=== PATIENT | female | born 1965 | race Caucasian/White ===

== ENCOUNTER 2017-04-03 11:45 | Day surgery (SDC) | payer OTHER ==
[2017-04-03] MEDS ORDERED: MIDAZOLAM 2 MG/2 ML VIAL IVP ONE (12:00)
[2017-04-03] MEDS ORDERED: ONDANSETRON 4 MG/2 ML VIAL IVP ONE (12:00)
[2017-04-03] MEDS ORDERED: fentaNYL 100 MCG/2 ML VIAL IVP ONE (12:00)
[2017-04-03] MEDS ORDERED: LACTATED RINGERS 1,000 ML IV ONE (12:01)
[2017-04-03 12:30] LABS: HCG UR QUAL NEGATIVE
[2017-04-03 13:17] VITALS: BP 117/62
== END 2017-04-03 11:46 | disposition home or self-care (01) ==
LOC: SDS 11:45
PROVIDERS: ATTEND Surgery
PROC: 0DJD8ZZ Inspection of Lower Intestinal Tract, Via Natural or Artificial Opening Endoscopic (ICD-10-PCS; principal; 2017-04-03 12:45)
DX: Z12.11 Encounter for screening for malignant neoplasm of colon (principal)
CPT/HCPCS: 45378; 81025; J7120

== ENCOUNTER 2018-02-28 09:26 | Outpatient (CLI) | payer BC, OTHER ==
[2018-02-28 11:11] VITALS: BP 138/69
--- NOTE | 2018-02-28 11:24 | Ultrasound Report ---
Procedure Date: 02/28/2018 Accession Number: [id number] / [id number] Procedure: US - Breast Punct Asp Cyst RT CPT Code: FULL RESULT: EXAM: Breast Punct Asp Cyst RT DATE: 02/28/2018 10:26 AM CLINICAL HISTORY: R BREAST CYST COMPARISON: None. TECHNIQUE/FINDINGS: Written informed consent was obtained. The patient was brought to the ultrasound procedure room and placed in the supine position. Following preliminary ultrasound which identified a 3.5 cm simple appearing right breast cyst, the area was sterilely prepped. A 20-gauge needle was used to obtain adequate local anesthesia with lidocaine and then advanced into the cyst under ultrasound guidance with aircraft sales representative images obtained for the record. A total of 7 cc of clear straw-colored fluid were aspirated and discarded. The cyst fully collapsed on ultrasound. The patient appeared to tolerate the procedure well. IMPRESSION: Right breast cyst aspiration. RADIA
[2018-02-28] MEDS ORDERED: BUFFERED LIDOCAINE 10 ML SYRINGE IU ONE (13:05)
== END 2018-02-28 09:27 | disposition home or self-care (01) ==
LOC: DI 09:26
PROVIDERS: ATTEND Surgery
DX: N60.01 Solitary cyst of right breast (principal)
CPT/HCPCS: 19000

== ENCOUNTER 2020-06-20 09:15 | Emergency (ER) | payer OTHER ==
[2020-06-20 10:36] LABS: BASOPHILS # (AUTO) 0.1 10^3/uL (0.0-0.1); BASOPHILS % (AUTO) 1.2 %; EOSINOPHILS # (AUTO) 0.5 10^3/uL (0.0-0.7); EOSINOPHILS % (AUTO) 6.9 %; HGB - HEMOGLOBIN 15.1 g/dL (12.0-16.0); LYMPHOCYTES # (AUTO) 1.8 10^3/uL (1.5-3.5); MEAN CORPUSCULAR HEMOGLOBIN 30.9 pg (27.0-31.0); MEAN CORPUSCULAR HGB CONC 33.5 g/dL (32.0-36.0); MEAN CORPUSCULAR VOLUME 92.4 fL (81.0-99.0); MEAN PLATELET VOLUME 10.6 fL (7.9-10.8); MONOCYTES # (AUTO) 0.5 10^3/uL (0.0-1.0); MONOCYTES % (AUTO) 7.4 %; NEUTROPHILS % (AUTO) 58.2 %; PLT - PLATELET COUNT 265 10^3/uL (130-450); RED BLOOD COUNT 4.88 10^6/uL (4.20-5.40); RED CELL DISTRIBUTION WIDTH 12.3 % (12.0-15.0); WHITE BLOOD COUNT 6.9 x10^3/uL (4.8-10.8)
[2020-06-20 10:48] LABS: ALBUMIN 4.4 g/dL (3.2-5.5); ALBUMIN/GLOBULIN RATIO 1.4 (1.0-2.2); ALKALINE PHOSPHATASE 86 IU/L (42-121); ALT ALANINE AMINOTRANSFERASE < 10 IU/L (10-60); AST ASPARTATE AMINOTRANSFERASE 14 IU/L (10-42); BILIRUBIN,TOTAL 0.5 mg/dL (0.2-1.0); BUN - BLOOD UREA NITROGEN 19 mg/dL (6-20); CALCIUM 9.6 mg/dL (8.5-10.3); CARBON DIOXIDE - CO2 28 mmol/L (21-32); CHLORIDE 104 mmol/L (101-111); CREATININE 0.6 mg/dL (0.4-1.0); GLUCOSE 87 mg/dL (70-100); LIPASE 34 U/L (22-51); SODIUM 142 mmol/L (135-145); TOTAL PROTEIN 7.6 g/dL (6.7-8.2)
[2020-06-20 11:00] LABS: HCG UR QUAL NEGATIVE
[2020-06-20 12:48] VITALS: BP 129/92
--- NOTE | 2020-06-20 16:11 | ED Physician Documentation ---
History of Present Illness - Stated complaint Stated Complaint: NAUSEA/IRRITABILITY - Chief complaint Chief Complaint: General - History obtained from History obtained from: Patient - Additonal information Additional information: 55-year-old woman with medical history vulvar cyst, anxiety, iron deficiency anemia presents with irritability, body aches, and nausea since Sunday. Patient requesting AWAKE OVERNIGHT COUNSELOR exam at this time because she is concerned that she has not been checked in several years. Denies urinary symptoms lesions abnormal discharge or any other issues in the general area. Of note, patient tested negative for Covid this week but is worried because she is still feeling these nonspecific symptoms. Review of Systems Ten Systems: 10 systems reviewed and negative Constitutional: reports: Myalgias, Fatigue. denies: Fever, Chills Eyes: denies: Photophobia Ears: denies: Loss of hearing Nose: denies: Rhinorrhea / runny nose Throat: denies: Oral lesions / sores, Sore throat Cardiac: denies: Chest pain / pressure Respiratory: denies: Dyspnea, Cough GI: reports: Nausea. denies: Abdominal Pain : denies: Dysuria, Discharge Skin: denies: Rash Musculoskeletal: denies: Neck pain, Back pain Neurologic: reports: Generalized weakness. denies: Headache Psychiatric: reports: Anxiety Endocrine: denies: Polyuria PD PAST MEDICAL HISTORY - Past Medical History Past Medical History: Yes Cardiovascular: None Respiratory: None Neuro: None Endocrine/Autoimmune: None GI: None AWAKE OVERNIGHT COUNSELOR: None : None HEENT: None Psych: Anxiety Musculoskeletal: Osteoarthritis, Chronic back pain Derm: None - Past Surgical History Past Surgical History: Yes /AWAKE OVERNIGHT COUNSELOR: Endometrial ablation - Present Medications Home Medications: Ambulatory Orders Medication Instructions Recorded Confirmed Loratadine [Claritin] 10 mg PO DAILY 08/01/14 06/09/17 - Allergies Allergies/Adverse Reactions: Allergies Allergy/AdvReac Type Severity Reaction Status Date / Time acetaminophen [From Vicodin] AdvReac Nausea Verified 06/20/20 09:35 hydrocodone [From Vicodin] AdvReac Nausea Verified 06/20/20 09:35 - Social History Does the pt smoke?: No Smoking Status: Never smoker Does the pt drink ETOH?: No Does the pt have substance abuse?: No - Immunizations Immunizations are current?: Yes - POLST Patient has POLST: No PD ED PE NORMAL - Vitals Vital signs reviewed: Yes - General General: Alert and oriented X 3 - HEENT HEENT: Atraumatic, PERRL, EOMI - Neck Neck: Supple, no meningeal sign, No JVD - Cardiac Cardiac: RRR - Respiratory Respiratory: No respiratory distress, Clear bilaterally - Abdomen Abdomen: Normal bowel sounds, Non tender, Non distended - Female Female : Egg Crater present, Other (normal ext female genitalia. open cervical os with visible polyp. no lesions or abnormal discharge. no CMT or adnexal ttp) - Rectal Rectal: Deferred - Back Back: No CVA TTP - Derm Derm: Normal color, Warm and dry, No rash - Extremities Extremities: No deformity, No tenderness to palpate - Neuro Neuro: Alert and oriented X 3 - Psych Psych: Normal mood, Other (anxious affect) Results - Vitals Vitals: Vital Signs - 24 hr 06/20/20 06/20/20 09:23 12:42 Temperature 36.4 C L 36.8 C Heart Rate 67 61 Respiratory 16 16 Rate Blood Pressure 118/68 129/92 H O2 Saturation 99 100 Oxygen O2 Source Room air - Labs Labs: Laboratory Tests 06/20/20 06/20/20 06/20/20 10:27 10:27 10:35 WBC 6.9 RBC 4.88 Hgb 15.1 Hct 45.1 MCV 92.4 MCH 30.9 MCHC 33.5 RDW 12.3 Plt Count 265 MPV 10.6 Neut # (Auto) 4.0 Lymph # (Auto) 1.8 [place] # (Auto) 0.5 Eos # (Auto) 0.5 Baso # (Auto) 0.1 Absolute Nucleated RBC 0.00 Nucleated RBC % 0.0 Sodium 142 Potassium 4.3 Chloride 104 Carbon Dioxide 28 Anion Gap 10.0 BUN 19 Creatinine 0.6 Estimated GFR (MDRD) 104 Glucose 87 Calcium 9.6 Total Bilirubin 0.5 AST 14 ALT < 10 L Alkaline Phosphatase 86 Total Protein 7.6 Albumin 4.4 Globulin 3.2 Albumin/Globulin Ratio 1.4 Lipase 34 Ur Specific [place] <=1.005 Urine HCG, Qual NEGATIVE PD MEDICAL DECISION MAKING - ED course Complexity details: reviewed results, d/w patient ED course: 55-year-old woman with history of anemia, Bartholin cyst status post resolution, psychiatric illness, presents with nonspecific body aches and nausea over the past 2 days as well as concern that she has not had a pelvic exam in years. Basic blood work was unremarkable, and pelvic exam uncovered only a uterine polyp coming through the cervix however no acute issues. Extensive education undergone, and strict return precautions were given to patient. She understands need to follow-up with her primary and with FEEDLOT MANAGER. Departure - Departure Disposition: 01 Home, Self Care Clinical Impression: Nausea, Body aches Condition: Good Instructions: ED Viral Syndrome Comments: You have been seen in the emergency department for body aches and nausea. Your labs were normal, your test was negative and your pelvic exam had no abnormalities except for a small polyp on your cervix. You can be seen by your FEEDLOT MANAGER for further evaluation.Follow-up with your primary doctor as well. Return to the ED for any new or worsening symptoms. Discharge Date/Time: 06/20/20 12:53
[2020-06-20 20:37] LABS: TRICHOMONAS VAGINALIS DNA NEGATIVE (NEGATIVE)
== END 2020-06-20 12:53 | disposition home or self-care (01) ==
LOC: ED 09:15
DX: R11.0 Nausea (principal); M79.10 Myalgia, unspecified site; R53.83 Other fatigue; N84.1 Polyp of cervix uteri; D50.9 Iron deficiency anemia, unspecified; F41.9 Anxiety disorder, unspecified
CPT/HCPCS: 36415; 80053; 81025; 83690; 85025; 87491; 87591; 87661; 99283; 99284

== ENCOUNTER 2023-01-13 09:28 | Outpatient (CLI) | payer OTHER ==
[2023-01-13 18:41] LABS: BASOPHILS # (AUTO) 0.1 10^3/uL (0.0-0.1); BASOPHILS % (AUTO) 0.9 %; EOSINOPHILS # (AUTO) 0.2 10^3/uL (0.0-0.7); EOSINOPHILS % (AUTO) 3.3 %; HGB - HEMOGLOBIN 14.9 g/dL (12.0-16.0); LYMPHOCYTES # (AUTO) 1.9 10^3/uL (1.5-3.5); LYMPHOCYTES % (AUTO) 34.2 %; MEAN CORPUSCULAR HGB CONC 31.7 g/dL (32.0-36.0); MEAN CORPUSCULAR VOLUME 94.6 fL (81.0-99.0); MEAN PLATELET VOLUME 11.6 fL (7.9-10.8); MONOCYTES # (AUTO) 0.5 10^3/uL (0.0-1.0); NEUTROPHILS # (AUTO) 2.9 10^3/uL (1.5-6.6); NEUTROPHILS % (AUTO) 52.2 %; PLT - PLATELET COUNT 285 10^3/uL (130-450); RED BLOOD COUNT 4.97 10^6/uL (4.20-5.40); RED CELL DISTRIBUTION WIDTH 12.7 % (12.0-15.0); WHITE BLOOD COUNT 5.5 x10^3/uL (4.8-10.8)
[2023-01-13 18:57] LABS: % IRON SATURATION 36 % (20-50); ALBUMIN 4.1 g/dL (3.2-5.5); ALBUMIN/GLOBULIN RATIO 1.3 (1.0-2.2); ALKALINE PHOSPHATASE 67 IU/L (42-121); ALT ALANINE AMINOTRANSFERASE 12 IU/L (10-60); AST ASPARTATE AMINOTRANSFERASE 18 IU/L (10-42); BILIRUBIN,TOTAL 0.6 mg/dL (0.2-1.0); BUN - BLOOD UREA NITROGEN 23 mg/dL (6-20); CALCIUM 9.5 mg/dL (8.5-10.3); CARBON DIOXIDE - CO2 28 mmol/L (21-32); CHLORIDE 109 mmol/L (101-111); CHOL/HDL RATIO 3.4 (<4.4); CHOLESTEROL 188 mg/dL; CREATININE 0.8 mg/dL (0.4-1.0); GFR - MDRD 74 (>89); GLUCOSE 94 mg/dL (70-100); HDL CHOLESTEROL 55 mg/dL; IRON 127 ug/dL (28-170); LDL CHOLESTEROL,CALCULATED 115 mg/dL; LDL/HDL RATIO 2.1 (<4.4); POTASSIUM 4.3 mmol/L (3.5-5.0); SODIUM 142 mmol/L (135-145); TOTAL IRON BINDING CAPACITY 357 ug/dL (250-450); TOTAL PROTEIN 7.3 g/dL (6.7-8.2); TRANSFERRIN 255 mg/dL (192-382); TRIGLYCERIDES 89 mg/dL; VLDL CHOLESTEROL 18 mg/dL
[2023-01-13 19:09] LABS: THYROID STIMULATING HORMONE 0.63 uIU/mL (0.34-5.60)
[2023-01-13 19:14] LABS: FERRITIN 19.7 ng/mL (11.0-306.8)
[2023-01-13 19:43] LABS: ESTIMATED AVERAGE GLUCOSE 117 mg/dL (70-100); HEMOGLOBIN A1c% 5.7 % (4.27-6.07)
== END 2023-01-13 09:29 | disposition home or self-care (01) ==
LOC: LAB.N 09:28
PROVIDERS: ATTEND Nurse Practitioner Family
DX: D64.9 Anemia, unspecified (principal); R73.03 Prediabetes; F41.9 Anxiety disorder, unspecified
CPT/HCPCS: 36415; 80053; 80061; 82607; 82728; 83036; 83540; 83721; 84443; 84466; 85025

== ENCOUNTER 2023-02-05 10:21 | Emergency (ER) | payer OTHER ==
[2023-02-05 10:39] VITALS: BP 137/98
--- NOTE | 2023-02-05 11:42 | ED Physician Documentation ---
PD HPI HEENT - Stated complaint Stated Complaint: FATIGUE,STRAINED - Chief complaint Chief Complaint: Heent - History obtained from History obtained from: Patient - Additional information Additional information: 57-year-old woman who lost her voice for a week in September. Then it recurred again in November. Since then she feels like her throat is strained like she has been screaming that she has not been. She saw her doctor and was referred to ENT, but its not until next month. PD PAST MEDICAL HISTORY - Past Medical History Past Medical History: Yes Cardiovascular: None Respiratory: None Neuro: None Endocrine/Autoimmune: None GI: None BODY DESIGN CHECKER: None : None HEENT: None Psych: Anxiety Musculoskeletal: Osteoarthritis, Chronic back pain Derm: None - Past Surgical History Past Surgical History: Yes /BODY DESIGN CHECKER: Endometrial ablation - Present Medications Home Medications: Ambulatory Orders Medication Instructions Recorded Confirmed Loratadine [Claritin] 10 mg PO DAILY 08/01/14 06/09/17 Cetirizine [ZyrTEC] 10 mg PO DAILY #90 tablet 02/05/23 - Allergies Allergies/Adverse Reactions: Allergies Allergy/AdvReac Type Severity Reaction Status Date / Time acetaminophen [From Vicodin] AdvReac Nausea Verified 02/05/23 10:34 hydrocodone [From Vicodin] AdvReac Nausea Verified 02/05/23 10:34 - Social History Does the pt smoke?: No Smoking Status: Never smoker Does the pt drink ETOH?: No Does the pt have substance abuse?: No - Immunizations Immunizations are current?: Yes - POLST Patient has POLST: No PD ED PE NORMAL - Vitals Vital signs reviewed: Yes - General General: Alert and oriented X 3, No acute distress - HEENT HEENT: Other (Phonation is normal, there is some cobblestoning of the retropharynx but otherwise the visualized portions of the oropharynx are normal.) - Neck Neck: Supple, no meningeal sign, No bony TTP - Neuro Neuro: Alert and oriented X 3, Normal speech Results - Vitals Vitals: Vital Signs - 24 hr 02/05/23 10:30 Temperature 36.4 C L Heart Rate 63 Respiratory 20 Rate Blood Pressure 137/98 H O2 Saturation 98 Oxygen O2 Source Room air PD Medical Decision Making - ED course ED course: 57-year-old woman who is lost her voice twice in the last couple of months and has a strange feeling in her throat. Exam is normal at this time except for some cobblestoning. We will trial some Zyrtec and advised to call ENT to be put on a cancellation list. Departure - Departure Disposition: Home, Self Care Clinical Impression: Hoarseness of voice Condition: Good Record reviewed to determine appropriate education?: Yes Prescriptions: Cetirizine [ZyrTEC] 10 mg PO DAILY #90 tablet Comments: As discussed, exam is normal today with the exception of some cobblestoning which is a sign of inflammation in the retropharynx. Reasonable to trial the Zyrtec as we discussed and be on a cancellation list for ENT. Return for new or worsening symptoms.
== END 2023-02-05 11:46 | disposition home or self-care (01) ==
LOC: ED 10:21
DX: R49.0 Dysphonia (principal)
CPT/HCPCS: 99281; 99283

== ENCOUNTER 2023-03-08 10:21 | Outpatient (CLI) | payer OTHER ==
--- NOTE | 2023-03-20 09:36 | Mammography Report ---
BILATERAL DIGITAL SCREENING MAMMOGRAM 3D/2D: 03/08/2023 CLINICAL: Routine screening. Comparison is made to exams dated: 08/15/2016 mammogram and 08/15/2016 mammogram - [facility]. Both breasts are heterogeneously dense, which may obscure small masses (category c / 51-75% glandular tissue). There is a new oval equal density mass in the right breast at 9 o'clock middle depth. No other significant masses, calcifications, or other findings are seen in either breast. IMPRESSION: INCOMPLETE: NEEDS ADDITIONAL IMAGING EVALUATION The new oval equal density mass in the right breast most likely is a cyst or clustered cysts and is i ndeterminate. Additional views with possible ultrasound are recommended. Patient has a history of cyst aspiration in this breast and this may be a recurrent cyst, however rec ent comparison images are not available. If these become available, an addendum can be created and re -evaluation of need for further imaging will be done at that time. Based on the Tyrer Cuzick model (a risk assessment model) the patients lifetime risk is 11.1% and he r 10 year risk is 3.6%. According to the ACR, ACS, and NCCN guidelines, an annual breast MRI exam jennifer ng with mammogram is recommended if the patients lifetime risk is 20% or greater. This exam was interpreted at Station ID: [id number]. NOTE: For mammograms, a report in lay terms will be sent to the patient. Approximately 15% of breast malignancies will not be visualized mammographically. In the management of a palpable breast mass, a negative mammogram must not discourage biopsy of a clinically suspicious lesion. Electronically Signed By: Debbie bagley/:03/20/2023 09:16:03 ACR BI-RADS Category 0: Incomplete 3340F PARENCHYMAL PATTERN: (D) - The breast(s) demonstrate(s) heterogeneously dense fibroglandular parenchy ma. BI-RADS CATEGORY: (0) - 0 Mammo and [place] [id number] Immediate follow-up LATERALITY: (B)
== END 2023-03-08 10:22 | disposition home or self-care (01) ==
LOC: DI.N 10:21
PROVIDERS: ATTEND Internal Medicine
DX: Z12.31 Encounter for screening mammogram for malignant neoplasm of breast (principal); N63.15 Unspecified lump in the right breast, overlapping quadrants

== ENCOUNTER 2023-04-06 12:30 | Outpatient (CLI) | payer OTHER ==
--- NOTE | 2023-04-06 16:29 | Ultrasound Report ---
LIMITED ULTRASOUND OF RIGHT BREAST: 04/06/2023 CLINICAL: CB for special views right breast possible cyst. Comparison is made to exams dated: 03/08/2023 mammogram - [facility], 08/21/2020 mamm ogram, and 08/15/2016 ultrasound - [facility]. Color flow and real-time ultrasound of the right breast 9 o'clock region were performed. Saez scale images of the real-time examination were reviewed. There is a benign 3.6 cm x 3.4 cm x 1.4 cm oval cyst with a septated internal wall in the right breas t at 9 o'clock middle depth 5 cm from the nipple. This oval cyst is anechoic. This correlates with mammography findings. Color flow imaging demonstrates that there is no vascularity present. IMPRESSION: BENIGN There is no sonographic evidence of malignancy. The 3.6 cm circumscribed cyst in the right breast is benign. Exam findings were conveyed to the patient. Patient is advised to monitor for significant change. Cys t aspiration could be considered. A 1 year screening mammogram is recommended. This exam was interpreted at Station ID: [id number]. Electronically Signed By: Corona Flor M.D. slc/:04/06/2023 13:21:12 Ultrasound BI-RADS: 2 Benign BI-RADS CATEGORY: (2) - 2 Mammogram [id number] 1 year screening LATERALITY: (B)
--- NOTE | 2023-04-06 16:29 | Mammography Report ---
UNILATERAL RIGHT DIGITAL DIAGNOSTIC MAMMOGRAM 3D/2D WITH SPOT COMPRESSION: 04/06/2023 CLINICAL: Patient returns for additional imaging over a suspected mass in the right breast. Comparison is made to exams dated: 03/08/2023 mammogram - [facility], 08/21/2020 mamm ogram - [facility], 11/04/2018 mammogram, 11/06/2017 mammogram - [facility], 08/15/2016 mamm barber, and 08/15/2016 mammogram - [facility]. The right breast is heterogeneously dense, which may obscure small masses (category c / 51-75% glandu lar tissue). There is an oval equal density mass in the right breast at 9 o'clock middle depth. This is more prom inent. No other significant masses or calcifications are seen in the breast. IMPRESSION: INCOMPLETE: NEEDS ADDITIONAL IMAGING EVALUATION The oval equal density mass in the right breast most likely is a cyst and is indeterminate. A targeted ultrasound is recommended and will immediately follow. Based on the Tyrer Cuzick model (a risk assessment model) the patients lifetime risk is 10.8% and he r 10 year risk is 3.5%. According to the ACR, ACS, and NCCN guidelines, an annual breast MRI exam jennifer ng with mammogram is recommended if the patients lifetime risk is 20% or greater. This exam was interpreted at Station ID: [id number]. NOTE: For mammograms, a report in lay terms will be sent to the patient. Approximately 15% of breast malignancies will not be visualized mammographically. In the management of a palpable breast mass, a negative mammogram must not discourage biopsy of a clinically suspicious lesion. Electronically Signed By: Corona Flor M.D. slc/:04/06/2023 13:06:19 ACR BI-RADS Category 0: Incomplete 3340F PARENCHYMAL PATTERN: (D) - The breast(s) demonstrate(s) heterogeneously dense fibroglandular parkavon perla. BI-RADS CATEGORY: (0) - 0 Ultrasound [id number] Immediate follow-up LATERALITY: (B)
== END 2023-04-06 12:31 | disposition home or self-care (01) ==
LOC: DI 12:30
PROVIDERS: ATTEND Internal Medicine
DX: N60.01 Solitary cyst of right breast (principal)

== ENCOUNTER 2023-06-08 18:22 | Outpatient (CLI) | payer OTHER ==
[2023-06-08 21:00] LABS: BASOPHILS # (AUTO) 0.1 10^3/uL (0.0-0.1); BASOPHILS % (AUTO) 1.1 %; EOSINOPHILS # (AUTO) 0.4 10^3/uL (0.0-0.7); EOSINOPHILS % (AUTO) 4.7 %; HGB - HEMOGLOBIN 13.7 g/dL (12.0-16.0); LYMPHOCYTES # (AUTO) 2.7 10^3/uL (1.5-3.5); LYMPHOCYTES % (AUTO) 33.1 %; MEAN CORPUSCULAR HEMOGLOBIN 30.6 pg (27.0-31.0); MEAN CORPUSCULAR HGB CONC 33.4 g/dL (32.0-36.0); MEAN CORPUSCULAR VOLUME 91.5 fL (81.0-99.0); MEAN PLATELET VOLUME 10.9 fL (7.9-10.8); MONOCYTES # (AUTO) 0.7 10^3/uL (0.0-1.0); MONOCYTES % (AUTO) 8.5 %; NEUTROPHILS # (AUTO) 4.3 10^3/uL (1.5-6.6); NEUTROPHILS % (AUTO) 52.4 %; PLT - PLATELET COUNT 277 10^3/uL (130-450); RED BLOOD COUNT 4.48 10^6/uL (4.20-5.40); RED CELL DISTRIBUTION WIDTH 12.3 % (12.0-15.0); WHITE BLOOD COUNT 8.2 x10^3/uL (4.8-10.8)
[2023-06-08 21:06] LABS: ESTIMATED AVERAGE GLUCOSE 114 mg/dL (70-100); HEMOGLOBIN A1c% 5.6 % (4.27-6.07)
[2023-06-08 21:32] LABS: ALBUMIN 4.4 g/dL (3.2-5.5); ALBUMIN/GLOBULIN RATIO 1.6 (1.0-2.2); ALKALINE PHOSPHATASE 81 IU/L (42-121); ALT ALANINE AMINOTRANSFERASE 6 IU/L (10-60); AST ASPARTATE AMINOTRANSFERASE 13 IU/L (10-42); BILIRUBIN,TOTAL 0.3 mg/dL (0.2-1.0); BUN - BLOOD UREA NITROGEN 27 mg/dL (6-20); CALCIUM 9.5 mg/dL (8.5-10.3); CARBON DIOXIDE - CO2 30 mmol/L (21-32); CHLORIDE 105 mmol/L (101-111); CHOL/HDL RATIO 3.4 (<4.4); CHOLESTEROL 173 mg/dL; CREATININE 0.7 mg/dL (0.6-1.3); GFR - MDRD 86 (>89); GLUCOSE 139 mg/dL (74-104); HDL CHOLESTEROL 51 mg/dL; LDL CHOLESTEROL,CALCULATED 105 mg/dL; LDL/HDL RATIO 2.1 (<4.4); POTASSIUM 4.1 mmol/L (3.5-4.5); SODIUM 139 mmol/L (135-145); TOTAL PROTEIN 7.1 g/dL (6.4-8.9); TRIGLYCERIDES 83 mg/dL (48-352); VLDL CHOLESTEROL 17 mg/dL
[2023-06-09 01:55] LABS: THYROID STIMULATING HORMONE 0.95 uIU/mL (0.34-5.60)
== END 2023-06-08 18:23 | disposition home or self-care (01) ==
LOC: LAB.N 18:22
PROVIDERS: ATTEND Nurse Practitioner Family
DX: Z00.00 Encounter for general adult medical examination without abnormal findings (principal); E66.9 Obesity, unspecified; R73.03 Prediabetes
CPT/HCPCS: 36415; 80053; 80061; 83036; 83721; 84443; 85025

== ENCOUNTER 2023-07-16 16:15 | Outpatient (CLI) | payer OTHER ==
[2023-07-16 21:05] LABS: BASOPHILS # (AUTO) 0.1 10^3/uL (0.0-0.1); EOSINOPHILS # (AUTO) 0.2 10^3/uL (0.0-0.7); EOSINOPHILS % (AUTO) 3.1 %; HGB - HEMOGLOBIN 13.5 g/dL (12.0-16.0); LYMPHOCYTES # (AUTO) 2.5 10^3/uL (1.5-3.5); LYMPHOCYTES % (AUTO) 32.2 %; MEAN CORPUSCULAR HEMOGLOBIN 30.6 pg (27.0-31.0); MEAN CORPUSCULAR HGB CONC 32.9 g/dL (32.0-36.0); MEAN PLATELET VOLUME 11.6 fL (7.9-10.8); MONOCYTES # (AUTO) 0.7 10^3/uL (0.0-1.0); MONOCYTES % (AUTO) 9.1 %; NEUTROPHILS # (AUTO) 4.1 10^3/uL (1.5-6.6); NEUTROPHILS % (AUTO) 54.3 %; PLT - PLATELET COUNT 304 10^3/uL (130-450); RED BLOOD COUNT 4.41 10^6/uL (4.20-5.40); RED CELL DISTRIBUTION WIDTH 12.6 % (12.0-15.0); WHITE BLOOD COUNT 7.6 x10^3/uL (4.8-10.8)
[2023-07-16 21:10] LABS: HCG UR QUAL NEGATIVE
== END 2023-07-16 16:16 | disposition home or self-care (01) ==
LOC: LAB.N 16:15
PROVIDERS: ATTEND Obstetrics & Gynecology
DX: Z01.812 Encounter for preprocedural laboratory examination (principal); B97.7 Papillomavirus as the cause of diseases classified elsewhere
CPT/HCPCS: 36415; 81025; 85025

== ENCOUNTER 2023-07-19 06:47 | Day surgery (SDC) | payer OTHER ==
[2023-07-19] MEDS ORDERED: LACTATED RINGERS 1,000 ML IV ONE ×2 (07:04→09:43)
[2023-07-19] MEDS ORDERED: LIDOCAINE 1%-EPI 1:100000 20 ML MDV ONE (07:30)
[2023-07-19] MEDS ORDERED: POTASSIUM IODIDE/IODINE 14 ML SOLUTION ONE (07:47)
[2023-07-19] MEDS ORDERED: LIDOCAINE-MPF 1% 30 ML VIAL ONE (07:52)
--- NOTE | 2023-07-19 08:06 | ANESTHESIA ---
Pre-Anesthesia VS, & Labs - Diagnosis HPV - Procedure LEEP Vital Signs: Temp Pulse Resp BP Pulse Ox O2 Flow Rate 36.2 C L 64 12 110/69 98 07/19/23 07:20 07/19/23 07:20 07/19/23 07:20 07/19/23 07:20 07/19/23 07:20 Height: 5 ft 3 in Weight (kg): 78 kg Body Mass Index: 30.4 BMI Classification: Obese - Is Patient ?: No - Lab Results Lab results reviewed: Yes Home Medications and Allergies Home Medications: Ambulatory Orders Ascorbic Acid [Vitamin C] 1,000 mg PO DAILY 07/13/23 Buspirone HCl 15 mg PO BID 07/13/23 Multivitamin 1 each PO DAILY 07/13/23 Turmeric 400 mg PO DAILY 07/13/23 Vitamin B Complex 1 each PO DAILY 07/13/23 Ascorbic Acid [Vitamin C] 1,000 mg PO DAILY 07/13/23 Buspirone HCl 15 mg PO BID 07/13/23 Multivitamin 1 each PO DAILY 07/13/23 Turmeric 400 mg PO DAILY 07/13/23 Vitamin B Complex 1 each PO DAILY 07/13/23 Allergies/Adverse Reactions: Allergies Allergy/AdvReac Type Severity Reaction Status Date / Time hydrocodone [From Vicodin] AdvReac Nausea Verified 02/05/23 10:34 Anes History & Medical History - Anesthetic History Anesthesia Complications: reports: No previous complications Family history of Anesthesia Complications: Denies Family history of Malignant Hyperthermia: Denies - Medical History Cardiovascular: reports: None Pulmonary: reports: Asthma Gastrointestinal: reports: GERD (early, not currently symptomatic) Urinary: reports: None Neuro: reports: None Musculoskeletal: reports: Osteoarthritis Endocrine/Autoimmune: reports: None Skin: reports: None Smoking Status: Never smoker Psychosocial: reports: No issues indicated - Surgical History General: reports: Colonoscopy Eyes Ears Nose Throat (EENT): reports: Cataracts, Other Gynecologic: reports: Endometrial ablation Exam General: Alert Dental: WNL Mouth Openin Fingerbreadth Neck Mobility: Normal Mallampati classification: II Respiratory: Lungs clear, Normal breath sounds, No respiratory distress, No accessory muscle use Cardiovascular: Regular rate Mental/Cognitive Status: Alert/Oriented X3 Cognitive Status: Within normal limits Plan Anesthesia Type: General Consent for Procedure(s) Verified and Reviewed: Yes Code Status: Attempt Resuscitation ASA classification: 2-Mild systemic disease Is this case an emergency?: No
[2023-07-19] MEDS ORDERED: ePHEDrine 50 MG/ML VIAL IVP PRN (08:07)
[2023-07-19] MEDS ORDERED: ATROPINE ABBOJECT 1 MG/10 ML SYRINGE IVP PRN (08:07)
[2023-07-19] MEDS ORDERED: NALOXONE 0.4 MG/ML VIAL IVP PRN (08:07)
[2023-07-19] MEDS ORDERED: ONDANSETRON 4 MG/2 ML VIAL IVP PRN (08:07)
[2023-07-19] MEDS ORDERED: METOCLOPRAMIDE 10 MG/2 ML VIAL IVP PRN (08:07)
[2023-07-19] MEDS ORDERED: fentaNYL 100 MCG/2 ML VIAL IVP PRN (08:07)
[2023-07-19] MEDS ORDERED: HYDROmorphone 0.5 MG/0.5 ML SYRINGE IVP PRN (08:07)
[2023-07-19] MEDS ORDERED: MIDAZOLAM 2 MG/2 ML VIAL ONE (08:10)
[2023-07-19] MEDS ORDERED: LIDOCAINE-PF 2% 10 ML AMP SUBQ ONE (08:11)
[2023-07-19] MEDS ORDERED: PROPOFOL 200 MG/20 ML VIAL IVP ONE ×2 (08:11→09:32)
[2023-07-19] MEDS ORDERED: ONDANSETRON 4 MG/2 ML VIAL ONE ×2 (08:59→09:32)
[2023-07-19] MEDS ORDERED: LACTATED RINGERS 1,000 ML IV SCH (09:00)
[2023-07-19] MEDS ORDERED: LIDOCAINE 1%-EPI 1:100000 20 ML MDV SUBQ ONE (09:11)
[2023-07-19] MEDS ORDERED: POTASSIUM IODIDE/IODINE 14 ML SOLUTION TOP ONE (09:22)
[2023-07-19] MEDS ORDERED: DEXAMETHASONE 4 MG/ML VIAL ONE (09:32)
[2023-07-19] MEDS ORDERED: ROCURONIUM 50 MG/5 ML VIAL ONE (09:32)
[2023-07-19] MEDS ORDERED: FERRIC SUBSULFATE 8 ML SOLUTION (FOR OR) TOP ONE (09:47)
--- NOTE | 2023-07-19 10:09 | OPERATIVE REPORT ---
Operative Report - General Procedure Date: 07/19/23 Planned Procedure: LEEP Pre-Op Diagnosis: persistent HPV Procedure Performed: LEEP Post Op Diagnosis: same as above - Procedure Note Primary Surgeon: phong Estimated Blood Loss (mL): 0 Urine Output (mL): 0 - Other Other Information/Narrative: OPERATIVE NOTE Pre-operative diagnosis: 1. Persistent HPV Procedure: LEEP Post-operative diagnosis: Same as above Surgeon: Phong Torch Operator: None Anesthesia: LMA Findings: EUA: normal cervix Speculum: normal vagina, normal cervix Acetic acid: no remarkable acetowhite areas - is post-menopausal in appearance Lugols: decreased staining throughout, c/w post-menopausal transformation zone clearly seen Specimen: LEEP cone biopsy - 2 parts, taged at 12' (2 long strings) and 6' (one long / one short string), and endocervix top hat biops Complications: None apparent EBL: minimal UOP: none, pt voided prior to case Dispo: Pt to PACU in stable condition Procedure in detail: After risks benefits and alternatives, as well as indication for procedure and anticipated post-operative recovery course, were discussed with the patient informed consent was obtained and patient was taken to the operating theater where general anesthesia with LMA was administered without complication. Pt placed in dorsal lithotomy position, SCDs in place and running, and patient grounded. coated speculum placed in vagina and cervix visualised completely, grossly normal. Cervix injected with 1% lidocaine with epinephrine. Acetic acid applied x 1 minute, findings noted above. Lugols applied, findings noted above. Large 2cm leep loop used for anterior cervical lip, and again for poste rior. Two passes made due to size of area removed. Using 1.5cm loop a top-hat biopsy was also taken. Area cauterized with roller ball. all hemostatic. thin layer of monsels applied to biopsy bed. still hemostatic. All instruments removed from vagina, pt awakened from anesthesia and taken to PACU in stable condition. Pts son called and left message, pts permission for this given prior to start of case.
[2023-07-19 10:33] VITALS: O2SAT 100
[2023-07-19 10:43] VITALS: BP 125/88
--- NOTE | 2023-07-19 16:04 | ANESTHESIA POST OP EVALUATION ---
Anesthesia Post Eval - Post Anesthesia Eval Vitals: Last Vital Signs Temp 36.2 C L 07/19/23 10:32 Pulse 63 07/19/23 10:32 Resp 16 07/19/23 10:32 BP 125/88 H 07/19/23 10:32 Pulse Ox 100 07/19/23 10:32 O2 Flow Rate CV Function Including HR & BP: Stable Pain Control: Satisfactory Nausea & Vomiting: Negative Mental Status: Baseline Respiratory Status: Airway Patent Hydration Status: Satisfactory Anesthesia Complications: None
== END 2023-07-19 06:48 | disposition home or self-care (01) ==
LOC: SDS 06:47
PROVIDERS: ATTEND Obstetrics & Gynecology
PROC: 0UBC7ZZ Excision of Cervix, Via Natural or Artificial Opening (ICD-10-PCS; principal; 2023-07-19 08:30)
DX: N87.0 Mild cervical dysplasia (principal); A63.0 Anogenital (venereal) warts; E66.9 Obesity, unspecified; Z68.30 Body mass index [BMI] 30.0-30.9, adult
CPT/HCPCS: 57522; A9270; J7120

== ENCOUNTER 2023-09-25 10:37 | Outpatient (CLI) | payer OTHER ==
--- NOTE | 2023-09-25 19:13 | DEXA Report ---
PROCEDURE: Dexa Spine and/or Hip INDICATIONS: POST MENOPAUSAL TECHNIQUE: Dual energy x-ray absorptiometry (DXA) was performed on a NEHP System. Regions measur ed are the AP Spine, femoral neck, and if needed forearm. COMPARISON: None FINDINGS: Lumbar Spine (L1-L4): Bone Mineral Density: 1.0-6 g/cm/cm,T score: -1.3. Left Femoral Neck: Bone Mineral Density: 1.008 g/cm/cm, T score: -0.2. Left Hip: Bone Mineral Density: 1.094 g/cm/cm,T score: 0.7. (T score greater or equal to -1.0: NORMAL) (T score from -1.1 to -2.4: OSTEOPENIA) (T score less than or equal to -2.5 to: OSTEOPOROSIS) Impression: By WHO criteria, this patient has low bone density (osteopenia) of the lumbar spine. Patients with diagnosis of osteoporosis or osteopenia should have regular bone mineral density assess ment. For those eligible for Medicare, routine testing is allowed once every 2 years. Testing frequ ency can be increased for patients who have rapidly progressing disease or for those who are receivin g medical therapy to restore bone mass. Reviewed by: Sherin Roman MD on 09/25/2023 7:12 PM PST Approved by: Sherin Roman MD on 09/25/2023 7:12 PM PST Station ID: [id number]
== END 2023-09-25 10:38 | disposition home or self-care (01) ==
LOC: DI 10:37
PROVIDERS: ATTEND Nurse Practitioner Family
DX: Z78.0 Asymptomatic menopausal state (principal); M85.88 Other specified disorders of bone density and structure, other site

== ENCOUNTER 2023-09-25 16:12 | Emergency (ER) | payer OTHER ==
[2023-09-25 16:40] LABS: BILIRUBIN,URINE NEGATIVE (NEGATIVE); GLUCOSE, URINE (UA) NEGATIVE (NEGATIVE); KETONES,URINE (UA) NEGATIVE (NEGATIVE); LEUKOCYTE ESTERASE, URINE NEGATIVE (NEGATIVE); NITRITE,URINE NEGATIVE (NEGATIVE); OCCULT BLOOD,URINE NEGATIVE (NEGATIVE); PH,URINE 6.5 PH (5.0-7.5); PROTEIN,URINE NEGATIVE (NEGATIVE); UROBILINOGEN,URINE 0.2 (NORMAL) E.U./dL (NORMAL)
[2023-09-25 16:41] VITALS: O2SAT 100
[2023-09-25 16:41] LABS: CLARITY,URINE CLEAR (CLEAR)
[2023-09-25 16:42] LABS: HCG UR QUAL NEGATIVE
[2023-09-25 16:55] LABS: BASOPHILS % (AUTO) 0.8 %; EOSINOPHILS # (AUTO) 0.2 10^3/uL (0.0-0.7); EOSINOPHILS % (AUTO) 2.9 %; HCT - HEMATOCRIT 44.8 % (37.0-47.0); HGB - HEMOGLOBIN 14.3 g/dL (12.0-16.0); LYMPHOCYTES # (AUTO) 1.6 10^3/uL (1.5-3.5); MEAN CORPUSCULAR HEMOGLOBIN 29.7 pg (27.0-31.0); MEAN CORPUSCULAR HGB CONC 31.9 g/dL (32.0-36.0); MEAN CORPUSCULAR VOLUME 93.1 fL (81.0-99.0); MEAN PLATELET VOLUME 10.3 fL (7.9-10.8); MONOCYTES # (AUTO) 0.9 10^3/uL (0.0-1.0); MONOCYTES % (AUTO) 17.8 %; NEUTROPHILS # (AUTO) 2.5 10^3/uL (1.5-6.6); NEUTROPHILS % (AUTO) 48.3 %; PLT - PLATELET COUNT 241 10^3/uL (130-450); RED BLOOD COUNT 4.81 10^6/uL (4.20-5.40); RED CELL DISTRIBUTION WIDTH 12.2 % (12.0-15.0); WHITE BLOOD COUNT 5.2 x10^3/uL (4.8-10.8)
[2023-09-25 17:19] LABS: ALBUMIN 4.4 g/dL (3.2-5.5); ALBUMIN/GLOBULIN RATIO 1.6 (1.0-2.2); BILIRUBIN,TOTAL 0.3 mg/dL (0.2-1.0); CALCIUM 9.5 mg/dL (8.5-10.3); CREATININE 0.7 mg/dL (0.6-1.3); POTASSIUM 4.6 mmol/L (3.5-4.5); TOTAL PROTEIN 7.2 g/dL (6.4-8.9)
--- NOTE | 2023-09-25 17:50 | ED Physician Documentation ---
History of Present Illness - Stated complaint Stated Complaint: /CONFUSION/FATIGUE - Chief complaint Chief Complaint: General - Additonal information Additional information: 58-year-old female presents emergency department for concerns of vitamin B12 deficiency. Patient said that she went to the [facility] because she realized she was not taking her multivitamins daily and she was starting to notice some paresthesias to her hands as well as some increased generalized weakness and fatigue. 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 She said that the [facility] doctor told her to come to the emergency department to have her vitamin B12 labs checked and for vitamin B12 injection. She has had no confusion no unilateral weakness no altered mental status she says she feels like she is having some brain fog but she is able to still work and function normally throughout her regular daily routines. She says she has had about 4 episodes of diarrhea today no abdominal pain no nausea vomiting. Patient also states that the doctor told her that her left eye was opening and closing slower than her right eye and thought that this also need to be evaluated in the emergency department. PD PAST MEDICAL HISTORY - Past Medical History Cardiovascular: None Respiratory: Asthma Neuro: Migraines Endocrine/Autoimmune: None GI: GERD, Chronic constipation CERT PHARMACY TECH: None : None HEENT: Chronic vision loss Psych: Anxiety, Panic attacks Musculoskeletal: Osteoarthritis Derm: None - Past Surgical History Past Surgical History: Yes General: Colonoscopy /CERT PHARMACY TECH: Endometrial ablation HEENT: Cataracts, Other - Present Medications Home Medications: Ambulatory Orders Medication Instructions Recorded Confirmed Buspirone HCl 15 mg PO BID 07/13/23 09/25/23 - Allergies Allergies/Adverse Reactions: Allergies Allergy/AdvReac Type Severity Reaction Status Date / Time hydrocodone [From Vicodin] AdvReac Nausea Verified 09/25/23 16:25 - Social History Does the pt smoke?: No Smoking Status: Never smoker Does the pt drink ETOH?: No Does the pt have substance abuse?: No - Immunizations Immunizations are current?: Yes - POLST Patient has POLST: No PD ED PE NORMAL - Vitals Vital signs reviewed: Yes - General General: Alert and oriented X 3, No acute distress, Well developed/nourished - HEENT HEENT: Atraumatic, PERRL, EOMI, Moist mucous membranes - Cardiac Cardiac: RRR, No murmur, No gallop, Strong equal pulses - Respiratory Respiratory: No respiratory distress, Clear bilaterally - Abdomen Abdomen: Normal bowel sounds - Derm Derm: Normal color, Warm and dry, No rash - Extremities Extremities: No deformity, No edema - Neuro Neuro: Alert and oriented X 3, 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, No motor deficit, Normal speech Eye Opening: Spontaneous Motor: Obeys Commands Verbal: Oriented GCS Score: 15 - Psych Psych: Normal mood Results - Vitals Vitals: Vital Signs - 24 hr 09/25/23 09/25/23 16:26 19:45 Temperature 36.8 C Heart Rate 74 65 Respiratory 18 16 Rate Blood Pressure 139/98 H 140/93 H O2 Saturation 100 100 Oxygen O2 Source Room air - Labs Labs: Laboratory Tests 09/25/23 09/25/23 09/25/23 16:22 16:45 16:45 WBC 5.2 RBC 4.81 Hgb 14.3 Hct 44.8 MCV 93.1 MCH 29.7 MCHC 31.9 L RDW 12.2 Plt Count 241 MPV 10.3 Neut # (Auto) 2.5 Lymph # (Auto) 1.6 Collin # (Auto) 0.9 Eos # (Auto) 0.2 Baso # (Auto) 0.0 Absolute Nucleated RBC 0.00 Nucleated RBC % 0.0 Sodium 138 Potassium 4.6 H Chloride 108 Carbon Dioxide 26 Anion Gap 4.0 L BUN 18 Creatinine 0.7 Estimated GFR (MDRD) 86 L Glucose 115 H Calcium 9.5 Total Bilirubin 0.3 AST 13 ALT 7 L Alkaline Phosphatase 87 Total Protein 7.2 Albumin 4.4 Globulin 2.8 Albumin/Globulin Ratio 1.6 Lipase 37 Vitamin B12 TSH Urine Color YELLOW Urine Clarity CLEAR Urine pH 6.5 Ur Specific Fossil 1.010 Urine Protein NEGATIVE Urine Glucose (UA) NEGATIVE Urine Ketones NEGATIVE Urine Occult Blood NEGATIVE Urine Nitrite NEGATIVE Urine Bilirubin NEGATIVE Urine Urobilinogen 0.2 (NORMAL) Ur Leukocyte Esterase NEGATIVE Ur Microscopic Review NOT INDICATED Urine Culture Comments NOT INDICATED Urine HCG, Qual NEGATIVE 09/25/23 16:45 WBC RBC Hgb Hct MCV MCH MCHC RDW Plt Count MPV Neut # (Auto) Lymph # (Auto) Collin # (Auto) Eos # (Auto) Baso # (Auto) Absolute Nucleated RBC Nucleated RBC % Sodium Potassium Chloride Carbon Dioxide Anion Gap BUN Creatinine Estimated GFR (MDRD) Glucose Calcium Total Bilirubin AST ALT Alkaline Phosphatase Total Protein Albumin Globulin Albumin/Globulin Ratio Lipase Vitamin B12 725 TSH 0.85 Urine Color Urine Clarity Urine pH Ur Specific Fossil Urine Protein Urine Glucose (UA) Urine Ketones Urine Occult Blood Urine Nitrite Urine Bilirubin Urine Urobilinogen Ur Leukocyte Esterase Ur Microscopic Review Urine Culture Comments Urine HCG, Qual PD Medical Decision Making - ED course ED course: 58-year-old female presents emergency department for concerns of vitamin B12 deficiency and concerns of her left eye opening closing slower than her right eye. In regards to her eyes opening closing I am seeing them opening and closing equally bilaterally and no concerns of possible strokelike symptoms. In regards to patient's vitamin B12 deficiency this lab was complete and there is no abnormalities her vitamin B12 is within normal limits as well as her TSH. Her potassium was slightly elevated at 4.6 this is probably due to dehydration because she said that she has had a couple episodes of diarrhea the last few days she is told to drink plenty of fluids going home and she denies any chest pain or shortness of breath there is no further interventions needed at this time. Patient was told to follow-up with her primary care provider to have her labs reevaluated to look into her possible elevated potassium but there is no emergent interventions warranted at this time. She is reassured she says overall she actually feels significantly better since coming to the emergency department feels safe to return home she is given strict return precautions all questions answered. Departure - Departure Disposition: 01 Home, Self Care Clinical Impression: Hyperkalemia Diarrhea Qualifiers: Diarrhea type: unspecified type Qualified Code(s): R19.7 - Diarrhea, unspecified Instructions: Hyperkalemia Dc Comments: Thank you for trusting us with your care as we discussed I will be calling you to let you know if your B12 or TSH labs are abnormal. Continue to drink plenty of water going home as I believe that your potassium is slightly elevated due to dehydration. Follow-up with your primary care provider about your ER visit today and if you need her paperwork sent over you can call our medical records department who can fax over any information or labs that were complete during this ER visit. Please come back to the emergency department for starting deve lop any chest pain, shortness of breath, worsening diarrhea, or any other concerning symptoms. Forms: PCP List Discharge Date/Time: 09/25/23:20
[2023-09-25 19:48] VITALS: BP 140/93
[2023-09-25 20:19] LABS: THYROID STIMULATING HORMONE 0.85 uIU/mL (0.34-5.60)
== END 2023-09-25 20:20 | disposition home or self-care (01) ==
LOC: ED 16:12
DX: E87.5 Hyperkalemia (principal); R19.7 Diarrhea, unspecified; R29.898 Other symptoms and signs involving the musculoskeletal system; Z78.0 Asymptomatic menopausal state; M85.88 Other specified disorders of bone density and structure, other site
CPT/HCPCS: 36415; 80053; 81001; 81003; 81025; 82607; 83690; 84443; 85025; 87086; 99283

== ENCOUNTER 2023-12-15 10:29 | Outpatient (CLI) | payer OTHER ==
[2023-12-15 10:46] LABS: BASOPHILS # (AUTO) 0.1 10^3/uL (0.0-0.1); EOSINOPHILS # (AUTO) 1.3 10^3/uL (0.0-0.7); EOSINOPHILS % (AUTO) 17.6 %; HCT - HEMATOCRIT 43.8 % (37.0-47.0); HGB - HEMOGLOBIN 14.2 g/dL (12.0-16.0); LYMPHOCYTES % (AUTO) 28.2 %; MEAN CORPUSCULAR HEMOGLOBIN 29.9 pg (27.0-31.0); MEAN CORPUSCULAR HGB CONC 32.4 g/dL (32.0-36.0); MEAN CORPUSCULAR VOLUME 92.2 fL (81.0-99.0); MEAN PLATELET VOLUME 10.3 fL (7.9-10.8); MONOCYTES # (AUTO) 0.5 10^3/uL (0.0-1.0); MONOCYTES % (AUTO) 7.4 %; NEUTROPHILS # (AUTO) 3.3 10^3/uL (1.5-6.6); NEUTROPHILS % (AUTO) 45.7 %; PLT - PLATELET COUNT 254 10^3/uL (130-450); RED BLOOD COUNT 4.75 10^6/uL (4.20-5.40); RED CELL DISTRIBUTION WIDTH 12.5 % (12.0-15.0); WHITE BLOOD COUNT 7.1 x10^3/uL (4.8-10.8)
[2023-12-15 11:00] LABS: ALBUMIN 4.2 g/dL (3.2-5.5); ALBUMIN/GLOBULIN RATIO 1.7 (1.0-2.2); ALKALINE PHOSPHATASE 102 IU/L (42-121); ALT ALANINE AMINOTRANSFERASE 6 IU/L (10-60); AST ASPARTATE AMINOTRANSFERASE 12 IU/L (10-42); BILIRUBIN,TOTAL 0.6 mg/dL (0.2-1.0); BUN - BLOOD UREA NITROGEN 15 mg/dL (6-20); CALCIUM 9.8 mg/dL (8.5-10.3); CARBON DIOXIDE - CO2 26 mmol/L (21-32); CHLORIDE 109 mmol/L (101-111); CREATININE 0.7 mg/dL (0.6-1.3); CRP - C-REACTIVE PROTEIN < 0.5 mg/dL (<0.5); GFR - MDRD 86 (>89); GLUCOSE 130 mg/dL (74-104); LIPASE 13 U/L (11-82); SODIUM 140 mmol/L (135-145); TOTAL PROTEIN 6.7 g/dL (6.4-8.9)
[2023-12-15 15:53] LABS: H. PYLORIS ANTIGEN STL NEGATIVE (Negative)
== END 2023-12-15 10:30 | disposition home or self-care (01) ==
LOC: LAB 10:29
PROVIDERS: ATTEND Registered Nurse
DX: R19.7 Diarrhea, unspecified (principal); R11.0 Nausea; R10.9 Unspecified abdominal pain
CPT/HCPCS: 36415; 80053; 83690; 84443; 85025; 86140; 87045; 87046; 87177; 87209; 87338; 87427

== ENCOUNTER 2023-12-18 19:44 | Outpatient (CLI) | payer OTHER ==
--- NOTE | 2023-12-19 13:11 | Ultrasound Report ---
PROCEDURE: Abdomen Limited INDICATIONS: DIARRHEA TECHNIQUE: Real-time focused scanning was performed of the abdomen, with image documentation. COMPARISONS: None. FINDINGS: Liver measures 15 cm. Heterogeneous echotexture. Multiple cysts are seen measuring 2.1 x 1.9 and 1.2 x 1.1 cm. Unremarkable gallbladder without discrete stones or focal tenderness. CBD is nondilated at 3 mm. Main portal vein is patent. Unremarkable pancreas where visualized. Right kidney measures 10 cm. IVC is patent. IMPRESSION: No acute sonographic abnormality in the right upper quadrant. Suspected liver cysts are present. Reviewed by: Rudi Finley MD on 12/19/2023 1:09 PM PDT Approved by: Rudi Finley MD on 12/19/2023 1:09 PM PDT Station ID: [id number]
== END 2023-12-18 19:45 | disposition home or self-care (01) ==
LOC: DI 19:44
PROVIDERS: ATTEND Registered Nurse
DX: R19.7 Diarrhea, unspecified (principal); R11.0 Nausea; R10.11 Right upper quadrant pain

== ENCOUNTER 2024-01-04 08:00 | Outpatient (CLI) | payer OTHER | END 2024-01-04 23:59 | disposition home or self-care (01) | LOC: LAB.WCP 08:00 | PROVIDERS: ATTEND Nurse Practitioner Family | DX: R07.0 Pain in throat (principal) | CPT/HCPCS: 87070 ==

== ENCOUNTER 2024-02-13 08:00 | Outpatient (CLI) | payer OTHER | END 2024-02-13 23:59 | disposition home or self-care (01) | LOC: LAB.N 08:00 | PROVIDERS: ATTEND Nurse Practitioner Family | DX: A07.8 Other specified protozoal intestinal diseases (principal) | CPT/HCPCS: 87177; 87209 ==

== ENCOUNTER 2024-02-29 09:01 | Outpatient (CLI) | payer OTHER | END 2024-02-29 09:02 | disposition home or self-care (01) | LOC: LAB.R 09:01 | PROVIDERS: ATTEND Nurse Practitioner Family | DX: A07.8 Other specified protozoal intestinal diseases (principal) | CPT/HCPCS: 87177; 87209 ==